=== PATIENT | female | born 1955 | race Two or more races ===

== ENCOUNTER 2017-08-07 06:30 | Day surgery (SDC) | payer OTHER ==
[2017-08-07] MEDS ORDERED: COSOPT PF EYE1 EACH OP (07:41)
[2017-08-07] MEDS ORDERED: DUI500 PO (13:04)
[2017-08-07] MEDS ORDERED: ALEVE220 M1 PO (13:04)
[2017-08-07] MEDS ORDERED: PERCOCET 5-3251 EACH PO (13:04)
== END 2017-08-07 15:40 | disposition home or self-care (01) ==
LOC: CIR.AMB 06:30
DX: S52.571A Other intraarticular fracture of lower end of right radius, initial encounter for closed fracture (principal)

== ENCOUNTER 2020-01-19 10:29 | Outpatient (CLI) | payer OTHER ==
[~2020-01-19 10:29] MED LIST: ALEVE220 M1 PO; COSOPT PF EYE1 EACH OP; DUI500 PO; PERCOCET 5-3251 EACH PO
== END 2020-01-19 11:00 | disposition home or self-care (01) ==
LOC: NUCLEAR 10:29 → MAMO-SONO 14:15
PROVIDERS: ATTEND Obstetrics & Gynecology
DX: M81.0 Age-related osteoporosis without current pathological fracture (principal)

== ENCOUNTER 2020-01-19 14:03 | Outpatient (CLI) | payer OTHER | END 2020-01-19 14:12 | disposition home or self-care (01) | LOC: MAMO-SONO 14:03 | PROVIDERS: ATTEND Obstetrics & Gynecology | DX: Z12.31 Encounter for screening mammogram for malignant neoplasm of breast (principal); N60.11 Diffuse cystic mastopathy of right breast; N60.12 Diffuse cystic mastopathy of left breast ==

== ENCOUNTER → 2020-05-25 10:23 | Outpatient (CLI) | payer OTHER | END | disposition home or self-care (01) | LOC: LAB 10:23 | DX: R73.09 Other abnormal glucose (principal); E55.9 Vitamin D deficiency, unspecified; R53.83 Other fatigue; R53.1 Weakness; E78.01 Familial hypercholesterolemia; E72.11 Homocystinuria; M79.18 Myalgia, other site ==

== ENCOUNTER 2020-12-10 11:20 | Outpatient (CLI) | payer OTHER | END 2020-12-10 11:21 | disposition home or self-care (01) | LOC: LAB 11:20 | PROVIDERS: ATTEND Physical Medicine & Rehabilitation | DX: I10 Essential (primary) hypertension (principal); E78.01 Familial hypercholesterolemia; R73.09 Other abnormal glucose; E72.11 Homocystinuria; R53.83 Other fatigue; R53.1 Weakness; N95.1 Menopausal and female climacteric states; E03.4 Atrophy of thyroid (acquired); E55.9 Vitamin D deficiency, unspecified; R70.0 Elevated erythrocyte sedimentation rate ==

== ENCOUNTER 2021-06-03 08:52 | Outpatient (CLI) | payer OTHER | END 2021-06-03 08:53 | disposition home or self-care (01) | LOC: LAB 08:52 | PROVIDERS: ATTEND Physical Medicine & Rehabilitation | DX: B27.90 Infectious mononucleosis, unspecified without complication (principal); R73.09 Other abnormal glucose; E78.01 Familial hypercholesterolemia; E72.11 Homocystinuria; R53.83 Other fatigue; R53.1 Weakness; N95.1 Menopausal and female climacteric states; E03.4 Atrophy of thyroid (acquired); E55.9 Vitamin D deficiency, unspecified; I10 Essential (primary) hypertension; R70.0 Elevated erythrocyte sedimentation rate ==

== ENCOUNTER 2021-06-15 09:28 | Outpatient (CLI) | payer OTHER | END 2021-06-15 09:42 | disposition home or self-care (01) | LOC: SONOGRAMA 09:28 | PROVIDERS: ATTEND Internal Medicine Gastroenterology | DX: R16.0 Hepatomegaly, not elsewhere classified (principal) ==

== ENCOUNTER 2021-07-04 21:18 | Emergency (ER) | payer OTHER ==
[~2021-07-04] VITALS: Ht 157.5 cm; Wt 79.8 kg
[2021-07-05] MEDS ORDERED: PEPCID AC20 MG PO (00:10)
[2021-07-05] MEDS ORDERED: CARAFATE1 GM PO (00:10)
== END 2021-07-05 03:03 | disposition home or self-care (01) ==
LOC: ER 21:18
DX: R10.13 Epigastric pain (principal)

== ENCOUNTER 2021-07-20 09:36 | Outpatient (CLI) | payer OTHER ==
[~2021-07-20 09:36] MED LIST changes: +CARAFATE1 GM PO; +PEPCID AC20 MG PO
== END 2021-07-20 09:42 | disposition home or self-care (01) ==
LOC: LAB 09:36
DX: R10.13 Epigastric pain (principal)

== ENCOUNTER 2021-08-05 09:09 | Outpatient (CLI) | payer OTHER | END 2021-08-05 09:15 | disposition home or self-care (01) | LOC: SONOGRAMA 09:09 | PROVIDERS: ATTEND Internal Medicine Gastroenterology | DX: R10.11 Right upper quadrant pain (principal) ==

== ENCOUNTER 2021-08-17 07:11 | Outpatient (CLI) | payer OTHER | END 2021-08-17 07:12 | disposition home or self-care (01) | LOC: NUCLEAR 07:11 | PROVIDERS: ATTEND Internal Medicine | DX: K80.20 Calculus of gallbladder without cholecystitis without obstruction (principal); R73.03 Prediabetes; K29.70 Gastritis, unspecified, without bleeding; E55.9 Vitamin D deficiency, unspecified; G62.9 Polyneuropathy, unspecified | CPT/HCPCS: 78226; A9510 ==

== ENCOUNTER 2021-12-15 10:27 | Outpatient (CLI) | payer OTHER | END 2021-12-15 12:37 | disposition home or self-care (01) | LOC: LAB 10:27 | DX: K80.20 Calculus of gallbladder without cholecystitis without obstruction (principal); G62.9 Polyneuropathy, unspecified; R73.03 Prediabetes; E55.9 Vitamin D deficiency, unspecified; K29.70 Gastritis, unspecified, without bleeding; E78.01 Familial hypercholesterolemia; E72.11 Homocystinuria; R73.09 Other abnormal glucose ==

== ENCOUNTER 2022-04-04 11:14 | Outpatient (CLI) | payer OTHER | END 2022-04-04 11:15 | disposition home or self-care (01) | LOC: LAB 11:14 | PROVIDERS: ATTEND Internal Medicine | DX: K80.20 Calculus of gallbladder without cholecystitis without obstruction (principal); R31.9 Hematuria, unspecified; K82.8 Other specified diseases of gallbladder; G62.9 Polyneuropathy, unspecified; K29.70 Gastritis, unspecified, without bleeding; E55.9 Vitamin D deficiency, unspecified; R10.13 Epigastric pain; E11.9 Type 2 diabetes mellitus without complications; I10 Essential (primary) hypertension ==